=== PATIENT | female | born 1950 | race Caucasian/White ===

== ENCOUNTER 2025-08-29 14:02 | Outpatient (AMB) | payer BC, SELFPAY ==
--- NOTE | 2025-08-29 14:11 | MHC.OFFVIS ---
Intake Visit Reasons: Cognitive impairment HPI Comments Details: The patient is a 74-year-old female presenting with minor neurocognitive disorder, notably affected by minor forgetfulness and memory lapses over an 8-month duration. Specific problems include repeated conversation points and occasional issues recalling appointments. This mild cognitive impairment affects her ability to handle certain daily financial tasks, such as writing checks accurately. Despite these challenges, she is capable of managing general household activities and traveling to known destinations. The patient's family history is notable for Alzheimer's disease, as her mother was affected though never formally diagnosed. There are indicators of sleep apnea, as her notes she sometimes ceases breathing during sleep; however, no sleep study has been conducted, and the patient does not employ a CPAP machine. Review of Systems Narrative - Neurological: Reports minor forgetfulness, issues with short-term memory retention. - Respiratory: Reports observed sleep apnea by spouse, denies sleep study. - Genitourinary: Reports minor changes in bladder control. - General: Denies significant stress or change in personality. Physical Exam Neuro Other: Mental Status: She is alert and awake with somewhat hesitancy of speech and normal affect.MOCA 13, and mini-mental status score 20. Cranial Nerves: CN II: Visual goodson full to confrontation, visual acuity intact. CN III, IV, : Pupils equal, round, reactive to light and accommodation. Extraocular movements are normal. CN V: Facial sensation is normal. CN VII: Facial movements symmetrical. CN VIII: Hearing intact to bedside conversation is normal. CN IX, X: Palate elevates symmetrically. CN XI: Shoulder shrug and head turn symmetrical. CN XII: Tongue midline without atrophy or fasciculations. Motor: Bulk and tone normal in all extremities. No significant muscle weakness in arms and legs. No drift. Deep tendon reflexes are absent. Gait: No significant abnormality. Extrapyramidal: Full facial expressions and blinking. No rigidity. Movements are appropriate with no tremor or abnormality. Speech: Normal; no dysarthria or tremor. Assessment & Plan Assessment & Plan (1) Alzheimer dementia: Comment: Labs at [place] in 2024: B12/TSH/RPR/CBC/LFTs/CMP WNL Code(s): G30.9 - Alzheimer's disease, unspecified; F02.80 - Dementia in other diseases classified elsewhere, unspecified severity, without behavioral disturbance, psychotic disturbance, mood disturbance, and anxiety Category: Medical Qualifiers: Alzheimer's disease onset: late onset Dementia severity: moderate Dementia behavioral or psychological symptom: without behavioral, psychotic, or mood disturbance or anxiety Qualified Code(s): G30.1 - Alzheimer's disease with late onset; F02.B0 - Dementia in other diseases classified elsewhere, moderate, without behavioral disturbance, psychotic disturbance, mood disturbance, and anxiety Plan 74 years old woman who probably has moderately severe dementia of Alzheimer type. Bedside psychological testing suggested that much severity, which would preclude treatment with new or amyloid clearing agents. She and her were educated about this diagnosis and she was started on small dose of donepezil. Screening MRI of brain is ordered. Orders: Orders MR head/brain wo con Today F02.B0 - Dementia in other diseases classified elsewhere, moderate, without behavioral disturbance, psychotic disturbance, mood disturbance, and anxiety, G30.1 - Alzheimer's disease with late onset Medications: New donepezil 5 mg PO DAILY 90 tabs 0RF Coding Level of Care Code New Pt Level 5 (93650) Global (99160) Diagnoses Moderate late onset Alzheimer's dementia without behavioral disturbance, psychotic disturbance, mood disturbance, or anxiety G30.1; F02.B0 Alzheimer's disease onset: late onset Dementia severity: moderate Dementia behavioral or psychological symptom: without behavioral, psychotic, or mood disturbance or anxiety Time Spent (min) 60 Comment Time spent included bedside psychological tests
== END 2025-08-29 14:39 | disposition home or self-care (01) ==
LOC: HO.HSM 14:02
PROVIDERS: Visit Provider Psychiatry & Neurology Neurology
DX: G30.1 Alzheimer's disease with late onset (principal); F02.B0 Dementia in other diseases classified elsewhere, moderate, without behavioral disturbance, psychotic disturbance, mood disturbance, and anxiety
CPT/HCPCS: 99205